=== PATIENT | male | born 1970 | race Two or more races ===

== ENCOUNTER 2019-08-23 22:52 | Emergency (ER) | payer OTHER ==
[~2019-08-23] VITALS: Ht 167.6 cm; Wt 72.6 kg
[~2019-08-23 22:52] MED LIST: ATORVASTATIN CA20 MG; DITROPAN XL15 MG; IMIPRAMINE HCL25 MG
[2019-08-23] MEDS ORDERED: HUMALOG100 UNIT/1 (23:28)
[2019-08-23] MEDS ORDERED: LANTUS SOL100 UNIT/1 (23:28)
[2019-08-24] MEDS ORDERED: CORTISPORIN EAR10 M1 OPHT (03:26)
[2019-08-24] MEDS ORDERED: NAPROXEN SODIU550 MG PO (03:41)
== END 2019-08-24 | disposition home or self-care (01) ==
LOC: ER 22:52
DX: H61.22 Impacted cerumen, left ear (principal); M25.531 Pain in right wrist

== ENCOUNTER 2020-12-26 22:02 | Inpatient (IN) | payer OTHER ==
[~2020-12-26] VITALS: Ht 172.7 cm; Wt 90.7 kg
[~2020-12-26 22:02] MED LIST changes: +CORTISPORIN EAR10 M1 OPHT; +HUMALOG100 UNIT/1; +LANTUS SOL100 UNIT/1; +NAPROXEN SODIU550 MG PO
--- NOTE | 2020-12-26 22:39 | NUR ---
PTE ALERTA Y ORIENTADO X3, PTE REFIER ULCERA EN PIE KEEGAN Y QUE SE LASTIMO EL PIE EL ELLEN DE HOY.PTE REFIERE QUE TENIA PARA EK ELLEN DE MANANA THERON CON DR.LOPEZ CLEMENT.
--- NOTE | 2020-12-27 00:53 | NUR ---
PACIENTE ALERTA Y ORIENTADO EN JACQUI HILDA ESFERAS. MRSmita WESTFALL ORIENTA A PACIENTE SOBRE PROCEDIMIENTO Y TX, REFIERE ENTENDER. EXTRAE MUESTRAS DE LABORATORIO CON MEDIDAS ASEPTICAS Y ENVIA A LABORATORIO.
--- NOTE | 2020-12-27 07:28 | NUR ---
SE RECIBE PACIENTE MASCULINO ALERTA Y ORIENTADO EN LAS HILDA ESFERAS. PACIENTE PENDIENTE A REVALUACION MEDICA LUEGO DE LECTURA DE CT SCAN. PACIENTE TOSIN DE DOLOR AL MOMENTO. DE MANTIENE PACIENTE EN EL PASILLO.
[2020-12-27] MEDS ORDERED: LOSARTAN POTASS25 MG (16:04)
[2020-12-27] MEDS ORDERED: OXYBUTYNIN CHLO15 MG (16:04)
[2020-12-27] MEDS ORDERED: SIMVASTATIN40 MG (16:04)
[2020-12-27] MEDS ORDERED: FOLIC ACID1 MG (16:04)
[2020-12-27] MEDS ORDERED: IMIPRAMINE HCL25 MG (16:04)
== END 2021-01-05 19:33 | disposition home or self-care (01) | DRG 683 ==
LOC: ER 22:02 → MEDI 12-27 15:33 → SEC-K 12-27 15:33 → MEDI 12-27 16:20
PROVIDERS: ADMIT Specialist; ATTEND Specialist
PROC: 0HBNXZZ Excision of Left Foot Skin, External Approach (ICD-10-PCS; principal; 2020-12-28)
DX: N17.9 Acute kidney failure, unspecified (principal); G82.20 Paraplegia, unspecified; L97.429 Non-pressure chronic ulcer of left heel and midfoot with unspecified severity; E11.65 Type 2 diabetes mellitus with hyperglycemia; E11.621 Type 2 diabetes mellitus with foot ulcer; E11.21 Type 2 diabetes mellitus with diabetic nephropathy; E11.22 Type 2 diabetes mellitus with diabetic chronic kidney disease; N18.9 Chronic kidney disease, unspecified; I12.9 Hypertensive chronic kidney disease with stage 1 through stage 4 chronic kidney disease, or unspecified chronic kidney disease; Z20.822 Contact with and (suspected) exposure to COVID-19